=== PATIENT | male | born 1960 | race Caucasian/White ===

== ENCOUNTER 2018-08-28 23:25 | Emergency (ER) | payer BC ==
[2018-08-28] MEDS ORDERED: Albuterol/Ipratropium 3.0-0.5 MG/3 ML Neb Soln NEB ONE (23:33)
--- NOTE | 2018-08-28 23:33 | EDM.PDOC ---
ED HPI GENERAL MEDICAL PROBLEM - General Chief Complaint: General Stated Complaint: MEDICAL CLEARANCE Time Seen by Provider: 08/28/18 23:33 Source of Information: Reports: Patient - History of Present Illness INITIAL COMMENTS - FREE TEXT/NARRATIVE: HISTORY AND PHYSICAL: History of present illness: [ patientpresent for medical screening exam He is here with the officer/sheriff valdez and under arrest] he has continueoius cough that seems to be forced, likely malinguring no f/n/v/c/s/ normal eaxam Review of systems: As per history of present illness and below otherwise all systems reviewed and negative. Past medical history: As per history of present illness and as reviewed below otherwise noncontributory. Surgical history: As per history of present illness and as reviewed below otherwise noncontributory. Social history: No reported history of drug or alcohol abuse. Family history: As per history of present illness and as reviewed below otherwise noncontributory. Physical exam: HEENT: Atraumatic, normocephalic, pupils reactive, negative for conjunctival pallor or scleral icterus, mucous membranes moist, throat clear, neck supple, nontender, trachea midline. Lungs: Clear to auscultation, breath sounds equal bilaterally, chest nontender. Heart: S1S2, regular, negative for clicks, rubs, or JVD. Abdomen: Soft, nondistended, nontender. Negative for masses or hepatosplenomegaly. Negative for costovertebral tenderness. Pelvis: Stable nontender. Genitourinary: Deferred. Rectal: Deferred. Extremities: Atraumatic, negative for cords or calf pain. Neurovascular unremarkable. Neuro: Awake, alert, oriented. Cranial nerves II through XII unremarkable. Cerebellum unremarkable. Motor and sensory unremarkable throughout. Exam nonfocal. Diagnostics: [influenza chest 1v - refused by patient ] Therapeutics: []duoneb- refused Impression: [ medical screening exam] Definitive disposition and diagnosis as appropriate pending reevaluation and review of above. - Related Data Allergies Allergy/AdvReac Type Severity Reaction Status Date / Time No Known Allergies Allergy Verified 08/28/18 23:36 Home Meds: Home Meds atorvaSTATin [Lipitor] 20 mg PO BEDTIME 01/12/16 [History] metFORMIN [Glucophage] 850 mg PO DAILY 01/12/16 [History] Past Medical History HEENT History: Reports: None Cardiovascular History: Reports: High Cholesterol Respiratory History: Reports: None Gastrointestinal History: Reports: None Genitourinary History: Reports: None Musculoskeletal History: Reports: Back Pain, Chronic, Fracture Other Musculoskeletal History: bilat leg fx, rt forearm, left ankle dislocation Neurological History: Reports: Other (See Below) Other Neuro History: brain tumor Psychiatric History: Reports: None Endocrine/Metabolic History: Reports: Diabetes, Type II Hematologic History: Reports: None Immunologic History: Reports: None Oncologic (Cancer) History: Reports: None Dermatologic History: Reports: None - Infectious Disease History Infectious Disease History: Reports: Chicken Pox, Measles, Mumps, Shingles - Past Surgical History Cardiovascular Surgical History: Reports: Other (See Below) Musculoskeletal Surgical History: Reports: Knee Replacement, Other (See Below) Social & Family History - Family History Family Medical History: Noncontributory ED ROS GENERAL - Review of Systems Review Of Systems: See Below ED EXAM, GENERAL - Physical Exam Exam: See Below Course - Vital Signs Last Recorded V/S: Last Vital Signs Temp 96.8 F 08/28/18 23:31 Pulse 80 08/28/18 23:31 Resp 21 H 08/28/18 23:31 BP 113/81 08/28/18 23:31 Pulse Ox 93 L 08/28/18 23:31 - Orders/Labs/Meds Orders: Active Orders 24 hr Category Date Time Status RT Aerosol Therapy [RC] ASDIRECTED Care 08/28/18 23:33 Active Chest 1V Frontal [CR] Stat Exams 08/28/18 23:33 Stop Req INFLUENZA A+B AG SCREEN [RM] Stat Lab 08/28/18 23:45 Received Meds: Medications Discontinued Medications Generic Name Dose Route Start Last Admin Trade Name Frelazaro PRN Reason Stop Dose Admin Albuterol/Ipratropium 3 ml 08/28/18 23:33 08/28/18 23:44 Duoneb 3.0-0.5 Mg/3 Ml NEB 08/28/18 23:34 3 ml ONETIME ONE Administration Departure - Departure Time of Disposition: 23:58 Disposition: Home, Self-Care 01 Condition: Good Clinical Impression: Encounter for medical screening examination - Discharge Information Referrals: PCP,None [Primary Care Provider] - Forms: ED Department Discharge Additional Instructions: The following information is given to patients seen in the emergency department who are being discharged to home. This information is to outline your options for follow-up care. We provide all patients seen in our emergency department with a follow-up referral. The need for follow-up, as well as the timing and circumstances, are variable depending upon the specifics of your emergency department visit. If you don't have a primary care physician on staff, we will provide you with a referral. We always advise you to contact your personal physician following an emergency department visit to inform them of the circumstance of the visit and for follow-up with them and/or the need for any referrals to a consulting specialist. The emergency department will also refer you to a specialist when appropriate. This referral assures that you have the opportunity for follow-up care with a specialist. All of these measure are taken in an effort to provide you with optimal care, which includes your follow-up. Under all circumstances we always encourage you to contact your private physician who remains a resource for coordinating your care. When calling for follow-up care, please make the office aware that this follow-up is from your recent emergency room visit. If for any reason you are refused follow-up, please contact the [facility] emergency department at and asked to speak to the emergency department charge nurse. - My Orders Last 24 Hours: My Active Orders 08/28/18 23:33 RT Aerosol Therapy [RC] ASDIRECTED Chest 1V Frontal [CR] Stat 08/28/18 23:45 INFLUENZA A+B AG SCREEN [RM] Stat - Assessment/Plan Last 24 Hours: My Active Orders 08/28/18 23:33 RT Aerosol Therapy [RC] ASDIRECTED Chest 1V Frontal [CR] Stat 08/28/18 23:45 INFLUENZA A+B AG SCREEN [RM] Stat
[2018-08-29 00:16] VITALS: BP 120/83
== END 2018-08-29 00:05 | disposition home or self-care (01) ==
LOC: MW.ED 23:25
DX: Z13.9 Encounter for screening, unspecified (principal); E11.9 Type 2 diabetes mellitus without complications; E78.00 Pure hypercholesterolemia, unspecified; Z79.899 Other long term (current) drug therapy
CPT/HCPCS: 87804; 94640; 99282; 99284-25; J7620-GY

== ENCOUNTER 2018-08-29 07:48 | Emergency (ER) | payer BC ==
[2018-08-29] MEDS ORDERED: Albuterol/Ipratropium 3.0-0.5 MG/3 ML Neb Soln NEB ONE (07:55)
[2018-08-29] MEDS ORDERED: Sodium Chloride 0.9% 2.5 ML Syringe FLUSH PRN (08:05)
[2018-08-29] MEDS ORDERED: Sodium Chloride 0.9% 1,000 ML IV ONE (08:05)
[2018-08-29] MEDS ORDERED: Sodium Chloride 0.9% 10 ML Syringe FLUSH PRN (08:05)
[2018-08-29] MEDS ORDERED: methylPREDNISolone Sodium Succinate 125 MG/2 ML SDV IVPUSH ONE (08:05)
--- NOTE | 2018-08-29 08:10 | EDM.PDOC ---
ED HPI GENERAL MEDICAL PROBLEM - General Chief Complaint: Respiratory Problem Stated Complaint: cough Time Seen by Provider: 08/29/18 07:51 - History of Present Illness INITIAL COMMENTS - FREE TEXT/NARRATIVE: HISTORY AND PHYSICAL: History of present illness: The patient is a 57-year-old male with a history of hypercholesterolemia and diabetes who had heart surgery as a child but has no other cardiac or pulmonary history and presents with a one-week history of cough which seems to be persistent and intractable. The patient was in the [place] when the symptoms started and his has been diagnosed with pneumonia and is currently on Zithromax at home in [place]. The patient works here in [place] and says that for the last 1 week he has been coughing initially dry and nonproductive of phlegm. He says he has felt sweaty but has not taken his temperature. He has no pre-existing asthma or COPD and does not smoke cigarettes. He says he has been using [id number] cough meds which have not been working. He's had no abdominal pain vomiting or diarrhea no sore throat and no runny nose. He says he only has chest pain from the coughing when he is not coughing he does not have any discomfort. He only feels short of breath with the cough. The patient did not get his influenza shot this year and has a family doctor back home in [place]. Review of systems: As per history of present illness and below otherwise all systems reviewed and negative. Past medical history: As per history of present illness and as reviewed below otherwise noncontributory. Surgical history: As per history of present illness and as reviewed below otherwise noncontributory. Social history: No reported history of drug or alcohol abuse. Family history: As per history of present illness and as reviewed below otherwise noncontributory. Physical exam: General: Well-developed well-nourished overweight man who is nontoxic and is somewhat breathless on my evaluation but vital signs are reviewed by me. There is audible wheezing. The patient also has a cough on my arrival to the room which sounds very dry and tacky. HEENT: Atraumatic, normocephalic, pupils reactive, negative for conjunctival pallor or scleral icterus, mucous membranes moist, throat clear, neck supple, nontender, trachea midline. There is no cervical adenopathy Lungs: There is scattered wheezing more in the upper airway than in the lower lung bay and some scattered rhonchi and the patient is exhibiting some abdominal work of breathing but is able to speak, he has diminished air exchange in the bases, breath sounds equal bilaterally, chest nontender. Heart: S1S2, regular rate and rhythm no overt murmurs Abdomen: Soft, nondistended, nontender. Negative for masses or hepatosplenomegaly. Negative for costovertebral tenderness. Pelvis: Deferred Genitourinary: Deferred. Rectal: Deferred. Extremities: Atraumatic, negative for cords or calf pain. There is no pedal edema Neurovascular unremarkable. Neuro: Awake, alert, oriented. Cranial nerves II through XII unremarkable. Cerebellum unremarkable. Motor and sensory unremarkable throughout. Exam nonfocal. Skin: Normal turgor no evidence of overt rashes or lesions, he is not diaphoretic but he is back does feel somewhat clammy Diagnostics: EKG influenza CBC CMP lactic acid blood cultures chest x-ray Therapeutics: IV O2 monitor IV fluids Solu-Medrol duo nebs Patient is improved and no longer has any wheezing in his lung bay and is moving air better and says he does feel improved. He is declining any more nebulizer treatments and in fact has been bothering nursing about being discharged as soon as possible as he has things that he needs to attend to. There were other patients in the room that occupied my time and I delayed getting in there and he did remain in the room to receive all of his testing results and here my concerns about his breathing. He is very adamant about leaving the ED as soon as possible and has his coat on. I was able to reevaluate his lung bay. I will give him a spacer for home as well as albuterol prednisone Tessalon Perles Phenergan with codeine and a Z-Julio C for home. I explained to him that I am covering him with a Z-Julio C because of his 's history of community-acquired pneumonia and although his chest x-ray is negative I will like to cover him. Advised him on reasons to return and to get follow-up. Impression: Acute bronchitis with bronchospasm Definitive disposition and diagnosis as appropriate pending reevaluation and review of above. chest Pain Score (Numeric/FACES): 5 - Related Data Allergies Allergy/AdvReac Type Severity Reaction Status Date / Time No Known Allergies Allergy Verified 08/29/18 07:51 Home Meds: Home Meds atorvaSTATin [Lipitor] 20 mg PO BEDTIME 01/12/16 [History] metFORMIN [Glucophage] 850 mg PO DAILY 01/12/16 [History] Potassium 1 tab PO DAILY 08/29/18 [History] Past Medical History HEENT History: Reports: None Cardiovascular History: Reports: High Cholesterol Respiratory History: Reports: None Gastrointestinal History: Reports: None Genitourinary History: Reports: None Musculoskeletal History: Reports: Back Pain, Chronic, Fracture Other Musculoskeletal History: bilat leg fx, rt forearm, left ankle dislocation Neurological History: Reports: Other (See Below) Other Neuro History: brain tumor Psychiatric History: Reports: None Endocrine/Metabolic History: Reports: Diabetes, Type II Hematologic History: Reports: None Immunologic History: Reports: None Oncologic (Cancer) History: Reports: None Dermatologic History: Reports: None - Infectious Disease History Infectious Disease History: Reports: Chicken Pox, Measles, Mumps, Shingles - Past Surgical History Cardiovascular Surgical History: Reports: Other (See Below) Musculoskeletal Surgical History: Reports: Knee Replacement, Other (See Below) Social & Family History - Family History Family Medical History: Noncontributory - Caffeine Use Caffeine Use: Reports: None ED ROS GENERAL - Review of Systems Review Of Systems: ROS reveals no pertinent complaints other than HPI. ED EXAM, GENERAL - Physical Exam Exam: See Below (See dictation) Course - Vital Signs Last Recorded V/S: Last Vital Signs Temp 35.7 C 08/29/18 08:15 Pulse 88 08/29/18 07:52 Resp 18 08/29/18 07:52 BP 143/81 H 08/29/18 07:52 Pulse Ox 94 L 08/29/18 08:03 - Orders/Labs/Meds Orders: Active Orders 24 hr Category Date Time Status Blood Glucose Check, Bedside [RC] ONETIME Care 08/29/18 08:04 Active Cardiac Monitoring [RC] . DIRECTED Care 08/29/18 08:04 Active Communication Order [RC] STAT Care 08/29/18 09:48 Active EKG 12 Lead [EKG Documentation Completion] [RC] STAT Care 08/29/18 08:03 Active Oxygen Therapy, ED [RC] ASDIRECTED Care 08/29/18 08:04 Active Pulse Oximetry [RC] ASDIRECTED Care 08/29/18 08:04 Active RT Aerosol Therapy [RC] ASDIRECTED Care 08/29/18 07:55 Active CULTURE BLOOD [BC] Stat Lab 08/29/18 08:09 Received CULTURE BLOOD [BC] Stat Lab 08/29/18 08:38 Received Sodium Chloride 0.9% [Saline Flush] Med 08/29/18 08:05 Active 10 ml FLUSH ASDIRECTED PRN Sodium Chloride 0.9% [Saline Flush] Med 08/29/18 08:05 Active 2.5 ml FLUSH ASDIRECTED PRN Blood Culture x2 Reflex Set [OM.PC] Stat Oth 08/29/18 08:04 Ordered Saline Lock Insert [OM.PC] Stat Oth 08/29/18 08:04 Ordered Medication Orders Sodium Chloride (Saline Flush) 10 ml FLUSH ASDIRECTED PRN PRN Reason: Keep Vein Open Last Admin: 08/29/18 08:09 Dose: 10 ml Sodium Chloride (Saline Flush) 2.5 ml FLUSH ASDIRECTED PRN PRN Reason: Keep Vein Open Last Admin: 08/29/18 08:08 Dose: 2.5 ml Labs: Laboratory Tests 08/29/18 08/29/18 08/29/18 Range/Units 08:09 08:09 08:09 WBC 7.87 (4.0-11.0) K/uL RBC 5.04 (4.50-5.90) M/uL Hgb 14.9 (13.0-17.0) g/dL Hct 45.3 (38.0-50.0) % MCV 89.9 (80.0-98.0) fL MCH 29.6 (27.0-32.0) pg MCHC 32.9 (31.0-37.0) g/dL RDW Std Deviation 45.8 (28.0-62.0) fl RDW Coeff of Remy 14 (11.0-15.0) % Plt Count 248 (150-400) K/uL MPV 10.30 (7.40-12.00) fL Neut % (Auto) 68.1 (48.0-80.0) % Lymph % (Auto) 22.4 (16.0-40.0) % Blanco % (Auto) 8.3 (0.0-15.0) % Eos % (Auto) 0.9 (0.0-7.0) % Baso % (Auto) 0.3 (0.0-1.5) % Neut # (Auto) 5.4 (1.4-5.7) K/uL Lymph # (Auto) 1.8 (0.6-2.4) K/uL Blanco # (Auto) 0.7 (0.0-0.8) K/uL Eos # (Auto) 0.1 (0.0-0.7) K/uL Baso # (Auto) 0.0 (0.0-0.1) K/uL Lactate 2.7 H (0.20-2.00) mmol/L Sodium 137 (136-148) mmol/L Potassium 3.8 (3.5-5.1) mmol/L Chloride 102 (98-107) mmol/L Carbon Dioxide 23.9 (21.0-32.0) mmol/L BUN 13 (7.0-18.0) mg/dL Creatinine 0.9 (0.8-1.3) mg/dL Est Cr Clr Drug Dosing 88.38 mL/min Estimated GFR (MDRD) > 60.0 ml/min Glucose 173 H (74-106) mg/dL Calcium 8.2 L (8.5-10.1) mg/dL Total Bilirubin 0.3 (0.2-1.0) mg/dL AST 30 (15-37) IU/L ALT 60 (14-63) IU/L Alkaline Phosphatase 83 (46-116) U/L Total Protein 7.7 (6.4-8.2) g/dL Albumin 3.5 (3.4-5.0) g/dL Globulin 4.2 H (2.6-4.0) g/dL Albumin/Globulin Ratio 0.8 L (0.9-1.6) Meds: Medications Generic Name Dose Route Start Last Admin Trade Name Freq PRN Reason Stop Dose Admin Sodium Chloride 10 ml 08/29/18 08:05 08/29/18 08:09 Saline Flush FLUSH 10 ml ASDIRECTED PRN Administration Keep Vein Open Sodium Chloride 2.5 ml 08/29/18 08:05 08/29/18 08:08 Saline Flush FLUSH 2.5 ml ASDIRECTED PRN Administration Keep Vein Open Discontinued Medications Generic Name Dose Route Start Last Admin Trade Name Freq PRN Reason Stop Dose Admin Albuterol/Ipratropium 3 ml 08/29/18 07:55 08/29/18 08:00 Duoneb 3.0-0.5 Mg/3 Ml NEB 08/29/18 07:56 3 ml ONETIME ONE Administration Sodium Chloride 1,000 mls @ 999 mls/hr 08/29/18 08:05 08/29/18 08:09 Normal Saline IV 08/29/18 09:05 999 mls/hr STAT ONE Administration Methylprednisolone Sodium Succinate 125 mg 08/29/18 08:05 08/29/18 08:08 Solu-Medrol IVPUSH 08/29/18 08:06 125 mg ONETIME ONE Administration Departure - Departure Time of Disposition: 10:13 Disposition: Home, Self-Care 01 Condition: Good Clinical Impression: Acute bronchitis with bronchospasm - Discharge Information Referrals: PCP,None [Primary Care Provider] - Forms: ED Department Discharge Additional Instructions: The following information is given to patients seen in the emergency department who are being discharged to home. This information is to outline your options for follow-up care. We provide all patients seen in our emergency department with a follow-up referral. The need for follow-up, as well as the timing and circumstances, are variable depending upon the specifics of your emergency department visit. If you don't have a primary care physician on staff, we will provide you with a referral. We always advise you to contact your personal physician following an emergency department visit to inform them of the circumstance of the visit and for follow-up with them and/or the need for any referrals to a consulting specialist. The emergency department will also refer you to a specialist when appropriate. This referral assures that you have the opportunity for followup care with a specialist. All of these measure are taken in an effort to provide you with optimal care, which includes your followup. Under all circumstances we always encourage you to contact your private physician who remains a resource for coordinating your care. When calling for followup care, please make the office aware that this follow-up is from your recent emergency room visit. If for any reason you are refused follow-up, please contact the [facility] emergency department at and ask to speak to the emergency department charge nurse. [facility] Primary care- Internal Medicine and [facility] [address] [place] [address] Wish hydration and rest and use all medications as prescribed. Please call and schedule a follow-up appointment with one of our local providers or your provider at home in the next few days for reevaluation and further care. Return to ER as needed and as discussed - My Orders Last 24 Hours: My Active Orders 08/29/18 07:55 RT Aerosol Therapy [RC] ASDIRECTED 08/29/18 08:03 EKG 12 Lead [EKG Documentation Completion] [RC] STAT 08/29/18 08:04 Blood Glucose Check, Bedside [RC] ONETIME Cardiac Monitoring [RC] . DIRECTED Oxygen Therapy, ED [RC] ASDIRECTED Pulse Oximetry [RC] ASDIRECTED Blood Culture x2 Reflex Set [OM.PC] Stat Saline Lock Insert [OM.PC] Stat 08/29/18 08:05 Sodium Chloride 0.9% [Saline Flush] 10 ml FLUSH ASDIRECTED PRN Sodium Chloride 0.9% [Saline Flush] 2.5 ml FLUSH ASDIRECTED PRN 08/29/18 08:09 CULTURE BLOOD [BC] Stat 08/29/18 08:38 CULTURE BLOOD [BC] Stat 08/29/18 09:48 Communication Order [RC] STAT - Assessment/Plan Last 24 Hours: My Active Orders 08/29/18 07:55 RT Aerosol Therapy [RC] ASDIRECTED 08/29/18 08:03 EKG 12 Lead [EKG Documentation Completion] [RC] STAT 08/29/18 08:04 Blood Glucose Check, Bedside [RC] ONETIME Cardiac Monitoring [RC] . DIRECTED Oxygen Therapy, ED [RC] ASDIRECTED Pulse Oximetry [RC] ASDIRECTED Blood Culture x2 Reflex Set [OM.PC] Stat Saline Lock Insert [OM.PC] Stat 08/29/18 08:05 Sodium Chloride 0.9% [Saline Flush] 10 ml FLUSH ASDIRECTED PRN Sodium Chloride 0.9% [Saline Flush] 2.5 ml FLUSH ASDIRECTED PRN 08/29/18 08:09 CULTURE BLOOD [BC] Stat 08/29/18 08:38 CULTURE BLOOD [BC] Stat 08/29/18 09:48 Communication Order [RC] STAT
--- NOTE | 2018-08-29 08:38 | CR ---
Indication: Pain. Shortness of breath. Technique: PA and lateral views the chest were obtained. Comparison: None Findings: Heart is normal in size. The lungs are clear. No infiltrate, pleural effusion, or pneumothorax is identified. Impression: No acute cardiopulmonary process. Dictated by Raven Rodriguez MD @ Aug 29 2018 8:35AM Signed by Dr. Raven Rodriguez @ Aug 29 2018 8:36AM
[2018-08-29 08:49] LABS: CHLORIDE,CL 102 mmol/L (98-107); SODIUM,NA 137 mmol/L (136-148)
[2018-08-29 10:19] VITALS: BP 118/64
== END 2018-08-29 10:17 | disposition home or self-care (01) ==
LOC: MW.ED 07:48
DX: J20.9 Acute bronchitis, unspecified (principal); E11.9 Type 2 diabetes mellitus without complications; Z79.84 Long term (current) use of oral hypoglycemic drugs
CPT/HCPCS: 36415; 71046; 80053; 83605; 85025; 87040; 87804; 93005; 96361; 96374; 99284; J2930; J7040; 99283; J7620-GY